=== PATIENT | male | born 1970 | race Caucasian/White ===

== ENCOUNTER → 2025-04-07 06:50 | Outpatient (REF) | payer BC, SELFPAY | LOC: RAD 06:50 | PROVIDERS: ATTENDING PHYSICIAN Internal Medicine; FAMILY PHYSICIAN Family Medicine | DX: R20.9 Unspecified disturbances of skin sensation (principal); R03.0 Elevated blood-pressure reading, without diagnosis of hypertension | CPT/HCPCS: 93922; 93925 ==

== ENCOUNTER → 2025-04-21 14:39 | Outpatient (REF) | payer BC, SELFPAY | LOC: RCS 14:39 | PROVIDERS: ATTENDING PHYSICIAN Internal Medicine; FAMILY PHYSICIAN Family Medicine | DX: R20.9 Unspecified disturbances of skin sensation (principal); R03.0 Elevated blood-pressure reading, without diagnosis of hypertension | CPT/HCPCS: 93306 ==